=== PATIENT | male | born 1990 | race Caucasian/White ===

== ENCOUNTER 2019-10-27 10:12 | Emergency (ER) | payer OTHER ==
--- NOTE | 2019-10-27 12:52 | ER ---
Nurse's Notes [facility] Name: Tito Pratt Age: 29 yrs Sex: Male : 1990 Arrival Date: 10/27/2019 Time: 10:15 Bed 28 Private MD: Luis Hearn Diagnosis: Acute actinic otitis externa Presentation: 10/26 11:09 Chief complaint: Patient states: R ear pain since Sunday. Denies drainage. Reports ca1 dizziness with the ear pain. Coronavirus screen: Client denies travel out of the [place] in the last 14 days. At this time, the client does not indicate any symptoms associated with coronavirus-19. Ebola Screen: Patient negative for fever greater than or equal to 101.5 degrees Fahrenheit, and additional compatible Ebola Virus Disease symptoms Patient denies exposure to infectious person. Patient denies travel to an Ebola-affected area in the 21 days before illness onset. No symptoms or risks identified at this time. Initial Sepsis Screen: Does the patient meet any 2 criteria? No. Patient's initial sepsis screen is negative. Does the patient have a suspected source of infection? No. Patient's initial sepsis screen is negative. Risk Assessment: Do you want to hurt yourself or someone else? Patient reports no desire to harm self or others. Onset of symptoms was October 27, 2019. 11:09 Method Of Arrival: Ambulatory ca1 11:09 Acuity: KEYA 5 ca1 Triage Assessment: 11:11 General: Appears in no apparent distress. comfortable, Behavior is calm, cooperative, ca1 appropriate for age. Pain: Complains of pain in right ear. 12:00 EENT: Tympanic membrane reddened on right ear. bp Historical: - Allergies: 11:11 No Known Allergies; ca1 - Home Meds: 11:11 losartan-hydrochlorothiazide 50-12.5 mg Oral tab 1 tab once daily [Active]; ca1 - PMHx: 11:11 Hypertension; ca1 - PSHx: 11:11 ankle sx; ca1 - Immunization history:: Adult Immunizations up to date. - Social history:: Smoking status: Patient denies any tobacco usage or history of. Screenin:00 Abuse screen: Denies threats or abuse. Denies injuries from another. Nutritional bp screening: No deficits noted. Tuberculosis screening: No symptoms or risk factors identified. Fall Risk None identified. Assessment: 11:15 General: SEE TRIAGE NOTE. bp 13:00 Reassessment: PT D/C HOME AMBULATORY, DX WITH OTITIS EXTERNA. bp Vital Signs: 11:09 BP 135 / 96; Pulse 60; Resp 15 S; Temp 98.9(O); Pulse Ox 98% on R/A; Weight 106.59 kg ca1 (R); Height 6 ft. 1 in. (185.42 cm) (R); 13:00 BP 127 / 85; Pulse 63; Resp 17; Temp 98.5; Pulse Ox 98% ; bp 11:09 Body Mass Index 31.00 (106.59 kg, 185.42 cm) ca1 ED Course: 10:15 Patient arrived in ED. as 10:15 Luis Hearn MD is Private Physician. as 11:10 Triage completed. ca1 11:11 Arm band placed on right wrist. ca1 12:00 Patient has correct armband on for positive identification. Bed in low position. Call bp light in reach. Side rails up X2. 12:11 Clayton Michael PA is PHCP. [facility] 12:11 Noah Darby MD is Attending Physician. [facility] 12:15 Chery Dorsey, RN is Primary Nurse. iw 12:50 Luis Hearn MD is Referral Physician. [facility] 13:00 No provider procedures requiring assistance completed. Patient did not have IV access bp during this emergency room visit. Administered Medications: No medications were administered Outcome: 12:51 Discharge ordered by MD. jmm 13:01 Discharged to home ambulatory. bp 13:01 Condition: stable 13:01 Discharge instructions given to patient, Instructed on discharge instructions, follow up and referral plans. medication usage, Demonstrated understanding of instructions, follow-up care, medications, Prescriptions given X 1. 13:02 Patient left the ED. bp Signatures: Clayton Michael PA PA jmm Martinez, Amelia as Chery Dorsey, RN TRACE iw Dash Dan RN RN bp Heather Rossi RN RN ca1
--- NOTE | 2019-10-27 12:52 | EDPHYS ---
Physician Documentation [facility] Name: Tito Pratt Age: 29 yrs Sex: Male : 1990 Arrival Date: 10/27/2019 Time: 10:15 Bed 28 Private MD: Luis Hearn ED Physician Noah Darby HPI: 10/26 12:43 This 29 yrs old Male presents to ER via Ambulatory with complaints of Ear jmm Pain, Dizziness. 12:43 The patient presents with pain. Onset: The symptoms/episode began/occurred gradually, 3 jmm day(s) ago. Modifying factors: The symptoms are alleviated by nothing, the symptoms are aggravated by nothing. Associated signs and symptoms: Pertinent negatives: fever. This is a 29 year old male with a history of htn that presents to the ED with complaints of right ear pain beginning 3 days ago. Denies cough, fever, congestion. . Historical: - Allergies: 11:11 No Known Allergies; ca1 - Home Meds: 11:11 losartan-hydrochlorothiazide 50-12.5 mg Oral tab 1 tab once daily [Active]; ca1 - PMHx: 11:11 Hypertension; ca1 - PSHx: 11:11 ankle sx; ca1 - Immunization history:: Adult Immunizations up to date. - Social history:: Smoking status: Patient denies any tobacco usage or history of. ROS: 12:43 Constitutional: Negative for fever, chills, and weight loss. jmm 12:43 Cardiovascular: Negative for chest pain, palpitations, and edema, Respiratory: Negative for shortness of breath, cough, wheezing, and pleuritic chest pain, Abdomen/GI: Negative for abdominal pain, nausea, vomiting, diarrhea, and constipation. 12:43 ENT: Positive for ear pain. 12:43 All other systems are negative. Exam: 12:43 Constitutional: This is a well developed, well nourished patient who is awake, alert, jmm and in no acute distress. Head/Face: atraumatic. Eyes: EOMI, no conjunctival erythema appreciated 12:43 Neck: Trachea midline, Supple Chest/axilla: Normal chest wall appearance and motion. Cardiovascular: Regular rate and rhythm. No edema appreciated Respiratory: Normal respirations, no respiratory distress appreciated Abdomen/GI: Non distended, soft Back: Normal ROM Skin: General appearance color normal MS/ Extremity: Moves all extremities, no obvious deformities appreciated, no edema noted to the lower extremities Neuro: Awake and alert, normal gait Psych: Behavior is normal, Mood is normal, Patient is cooperative and pleasant 12:43 ENT: Ear canal(s): swelling, that is moderate, of the right canal, Posterior pharynx: is normal. Vital Signs: 11:09 BP 135 / 96; Pulse 60; Resp 15 S; Temp 98.9(O); Pulse Ox 98% on R/A; Weight 106.59 kg ca1 (R); Height 6 ft. 1 in. (185.42 cm) (R); 13:00 BP 127 / 85; Pulse 63; Resp 17; Temp 98.5; Pulse Ox 98% ; bp 11:09 Body Mass Index 31.00 (106.59 kg, 185.42 cm) ca1 MDM: 12:33 Patient medically screened. [facility] 12:50 Data reviewed: vital signs, nurses notes. Counseling: I had a detailed discussion with octavia the patient and/or guardian regarding: the historical points, exam findings, and any diagnostic results supporting the discharge/admit diagnosis, the need for outpatient follow up, to return to the emergency department if symptoms worsen or persist or if there are any questions or concerns that arise at home. ED course: PE findings consistent with OE. Patient is advised to follow up with pcp and otherwise given strict return precautions. Patient understood and agrees with the plan of care. . Administered Medications: No medications were administered Disposition: 17:29 Co-signature as Attending Physician, Noah Darby MD. rn Disposition: 10/27/19 12:51 Discharged to Home. Impression: Acute actinic otitis externa. - Condition is Stable. - Discharge Instructions: Otitis Externa. - Prescriptions for Cortisporin- TC 3.3-3-10-0.5 mg/mL Otic Suspension - instill 4 drop by OTIC route every 6 hours; 1 bottle. - Medication Reconciliation Form, Thank You Letter, Antibiotic Education, Prescription Opioid Use, Work release form form. - Follow up: Luis Hearn MD; When: 2 - 3 days; Reason: Recheck today's complaints, Continuance of care, Re-evaluation by your physician. Signatures: Clayton Michael PA PA Noah Ramos MD MD rn Peltier, Brian, RN RN bp [place], Heather RN RN [facility] Corrections: (The following items were deleted from the chart) 13:02 12:51 10/27/2019 12:51 Discharged to Home. Impression: Acute actinic otitis externa. bp Condition is Stable. Forms are Medication Reconciliation Form, Thank You Letter, Antibiotic Education, Prescription Opioid Use. Follow up: Luis Hearn; When: 2 - 3 days; Reason: Recheck today's complaints, Continuance of care, Re-evaluation by your physician. octavia
[2019-10-27 13:15] VITALS: O2SAT 98
[2019-10-27 13:17] VITALS: BP 127/85; TEMP 98.5
== END 2019-10-27 13:02 | disposition home or self-care (01) ==
LOC: ER 10:12
DX: H60.511 Acute actinic otitis externa, right ear (principal); I10 Essential (primary) hypertension
CPT/HCPCS: 99282

== ENCOUNTER 2019-10-27 17:19 | Emergency (ER) | payer OTHER ==
--- NOTE | 2019-10-27 20:23 | ER ---
Nurse's Notes [facility] Name: Tito Pratt Age: 29 yrs Sex: Male : 1990 Arrival Date: 10/27/2019 Time: 17:22 Bed 13 Private MD: Diagnosis: Otitis externa Presentation: 10/26 17:50 Chief complaint: Patient states: here this morning for R ear pain. Was prescribed ear ca1 drops. Now, the pain is just unbearable and goes down to the R jaw. Coronavirus screen: Client denies travel out of the [place] in the last 14 days. At this time, the client does not indicate any symptoms associated with coronavirus-19. Ebola Screen: Patient negative for fever greater than or equal to 101.5 degrees Fahrenheit, and additional compatible Ebola Virus Disease symptoms Patient denies exposure to infectious person. Patient denies travel to an Ebola-affected area in the 21 days before illness onset. No symptoms or risks identified at this time. Initial Sepsis Screen: Does the patient meet any 2 criteria? No. Patient's initial sepsis screen is negative. Does the patient have a suspected source of infection? No. Patient's initial sepsis screen is negative. Risk Assessment: Do you want to hurt yourself or someone else? Patient reports no desire to harm self or others. Onset of symptoms was October 27, 2019. 17:50 Method Of Arrival: Ambulatory ca1 17:50 Acuity: KEYA 5 ca1 17:50 Onset of symptoms was October 27, 2019. ca1 Historical: - Allergies: 17:52 No Known Allergies; ca1 - Home Meds: 17:52 losartan-hydrochlorothiazide 50-12.5 mg Oral tab 1 tab once daily [Active]; ca1 - PMHx: 17:52 Hypertension; ca1 - PSHx: 17:52 ankle sx; ca1 - Immunization history:: Adult Immunizations up to date. - Social history:: Smoking status: Patient denies any tobacco usage or history of. Screenin:21 Abuse screen: Denies threats or abuse. Nutritional screening: No deficits noted. tw2 Tuberculosis screening: No symptoms or risk factors identified. Fall Risk None identified. Assessment: 19:55 General: Appears in no apparent distress. comfortable, Behavior is calm, cooperative. mg2 Neuro: Level of Consciousness is awake, alert, obeys commands, Oriented to person, place, time, situation. Cardiovascular: Capillary refill < 3 seconds Patient's skin is warm and dry. Respiratory: Airway is patent Respiratory effort is even, unlabored, Respiratory pattern is regular, symmetrical. GI: No signs and/or symptoms were reported involving the gastrointestinal system. : No signs and/or symptoms were reported regarding the genitourinary system. Derm: Skin is intact, is healthy with good turgor, Skin is pink, warm \T\ dry. normal. Musculoskeletal: Circulation, motion, and sensation intact. Capillary refill < 3 seconds. 19:55 Pain: Complains of pain in right ear. EENT: Reports. mg2 20:42 Reassessment: for dc after shot time. mg2 Vital Signs: 17:50 BP 129 / 81; Pulse 74; Resp 15 S; Temp 99.4(O); Pulse Ox 97% on R/A; Weight 106.59 kg ca1 (R); Height 6 ft. 1 in. (185.42 cm) (R); 20:56 BP 120 / 80; Pulse 80; Resp 18; Temp 99; Pulse Ox 100% on R/A; mg2 17:50 Body Mass Index 31.00 (106.59 kg, 185.42 cm) ca1 ED Course: 17:22 Patient arrived in ED. ag5 17:51 Triage completed. ca1 17:52 Arm band placed on right wrist. ca1 19:08 Chinmay Almonte, TRACE is Primary Nurse. mg2 19:36 Uriah Noe MD is Attending Physician. anel 19:55 Patient has correct armband on for positive identification. Door closed. mg2 19:55 No provider procedures requiring assistance completed. mg2 20:20 Jazlyn Jacobson MD is Referral Physician. anel 20:56 IV discontinued, intact, bleeding controlled, No redness/swelling at site. Pressure mg2 dressing applied. Administered Medications: 20:30 Drug: [place] 10 mg-325 mg 1 tabs Route: PO; mg2 20:57 Follow up: Response: No adverse reaction; RASS: Alert and Calm (0) mg2 20:31 Drug: LevOfloxacin 750 mg Route: PO; mg2 20:57 Follow up: Response: No adverse reaction mg2 20:41 Not Given (not available ): CIPRODEX 4 drops Otic in right ear once mg2 20:41 Drug: Rocephin (cefTRIAXone) 1 grams Route: IM; Site: left gluteus; mg2 20:57 Follow up: Response: No adverse reaction mg2 Outcome: 20:22 Discharge ordered by . anel 20:57 Discharged to home ambulatory. mg2 20:57 Condition: stable 20:57 Discharge instructions given to patient, Instructed on discharge instructions, follow up and referral plans. medication usage, Demonstrated understanding of instructions, follow-up care, medications, Prescriptions given X 3. 20:57 Patient left the ED. mg2 Signatures: Uriah Noe MD MD cha Wise, Tara, RN RN tw2 Chinmay Almonte RN RN mg2 Heather Rossi RN RN ca1 Seferino Villarreal ag5
--- NOTE | 2019-10-27 20:23 | EDPHYS ---
Physician Documentation [facility] Name: Tito Pratt Age: 29 yrs Sex: Male : 1990 Arrival Date: 10/27/2019 Time: 17:22 Bed 13 Private MD: LIN Physician Uriah Noe HPI: 10/26 20:13 This 29 yrs old Male presents to ER via Ambulatory with complaints of Ear anel Pain, Dizziness. 20:13 The patient presents with pain, that is acute, swelling, tenderness. The complaints anel affect the right ear. Onset: The symptoms/episode began/occurred 3 day(s) ago. Modifying factors: The symptoms are alleviated by nothing, the symptoms are aggravated by pulling on ears, touching. Associated signs and symptoms: Pertinent positives: vertigo. Severity of symptoms: At their worst the symptoms were moderate in the emergency department the symptoms are unchanged. The patient has not experienced similar symptoms in the past. Historical: - Allergies: 17:52 No Known Allergies; ca1 - Home Meds: 17:52 losartan-hydrochlorothiazide 50-12.5 mg Oral tab 1 tab once daily [Active]; ca1 - PMHx: 17:52 Hypertension; ca1 - PSHx: 17:52 ankle sx; ca1 - Immunization history:: Adult Immunizations up to date. - Social history:: Smoking status: Patient denies any tobacco usage or history of. ROS: 20:17 Constitutional: Negative for fever, chills, and weight loss, Eyes: Negative for injury, anel pain, redness, and discharge, Neck: Negative for injury, pain, and swelling, Cardiovascular: Negative for chest pain, palpitations, and edema, Respiratory: Negative for shortness of breath, cough, wheezing, and pleuritic chest pain, Abdomen/GI: Negative for abdominal pain, nausea, vomiting, diarrhea, and constipation, Back: Negative for injury and pain, : Negative for injury, bleeding, discharge, and swelling, MS/Extremity: Negative for injury and deformity, Skin: Negative for injury, rash, and discoloration, Neuro: Negative for headache, weakness, numbness, tingling, and seizure, Psych: Negative for depression, anxiety, suicide ideation, homicidal ideation, and hallucinations, Allergy/Immunology: Negative for hives, rash, and allergies, Endocrine: Negative for neck swelling, polydipsia, polyuria, polyphagia, and marked weight changes, Hematologic/Lymphatic: Negative for swollen nodes, abnormal bleeding, and unusual bruising. 20:17 ENT: Positive for ear pain. Exam: 20:17 Constitutional: This is a well developed, well nourished patient who is awake, alert, anel and in no acute distress. Head/Face: Normocephalic, atraumatic. Eyes: Pupils equal round and reactive to light, extra-ocular motions intact. Lids and lashes normal. Conjunctiva and sclera are non-icteric and not injected. Cornea within normal limits. Periorbital areas with no swelling, redness, or edema. Neck: Trachea midline, no thyromegaly or masses palpated, and no cervical lymphadenopathy. Supple, full range of motion without nuchal rigidity, or vertebral point tenderness. No Meningismus. Chest/axilla: Normal chest wall appearance and motion. Nontender with no deformity. No lesions are appreciated. Cardiovascular: Regular rate and rhythm with a normal S1 and S2. No gallops, murmurs, or rubs. Normal PMI, no JVD. No pulse deficits. Respiratory: Lungs have equal breath sounds bilaterally, clear to auscultation and percussion. No rales, rhonchi or wheezes noted. No increased work of breathing, no retractions or nasal flaring. Abdomen/GI: Soft, non-tender, with normal bowel sounds. No distension or tympany. No guarding or rebound. No evidence of tenderness throughout. Back: No spinal tenderness. No costovertebral tenderness. Full range of motion. Skin: Warm, dry with normal turgor. Normal color with no rashes, no lesions, and no evidence of cellulitis. MS/ Extremity: Pulses equal, no cyanosis. Neurovascular intact. Full, normal range of motion. Neuro: Awake and alert, GCS 15, oriented to person, place, time, and situation. Cranial nerves II-XII grossly intact. Motor strength 5/5 in all extremities. Sensory grossly intact. Cerebellar exam normal. Normal gait. Psych: Awake, alert, with orientation to person, place and time. Behavior, mood, and affect are within normal limits. 20:17 ENT: Ear canal(s): erythema, swelling, that is moderate, of the right canal, TM's: are normal, no acute changes, Examination of the other ear shows no obvious abnormality, normal, Nose: is normal, no acute changes, Mouth: is normal, no acute changes, Posterior pharynx: is normal, no acute changes. Vital Signs: 17:50 BP 129 / 81; Pulse 74; Resp 15 S; Temp 99.4(O); Pulse Ox 97% on R/A; Weight 106.59 kg ca1 (R); Height 6 ft. 1 in. (185.42 cm) (R); 20:56 BP 120 / 80; Pulse 80; Resp 18; Temp 99; Pulse Ox 100% on R/A; mg2 17:50 Body Mass Index 31.00 (106.59 kg, 185.42 cm) ca1 MDM: 19:36 Patient medically screened. anel 20:18 Differential diagnosis: otitis media, otitis externa, acute otalgia, cerumen impaction. anel Data reviewed: vital signs, nurses notes. Data interpreted: color television console monitor: not applicable for this patient encounter. rate is 74 beats/min, rhythm is regular, Pulse oximetry: on room air is 97 %. Test interpretation: by ED physician or midlevel provider:. Counseling: I had a detailed discussion with the patient and/or guardian regarding: the historical points, exam findings, and any diagnostic results supporting the discharge/admit diagnosis, the need for outpatient follow up, for definitive care, an ENT specialist. Administered Medications: 20:30 Drug: [place] 10 mg-325 mg 1 tabs Route: PO; mg2 20:57 Follow up: Response: No adverse reaction; RASS: Alert and Calm (0) mg2 20:31 Drug: LevOfloxacin 750 mg Route: PO; mg2 20:57 Follow up: Response: No adverse reaction mg2 20:41 Not Given (not available ): CIPRODEX 4 drops Otic in right ear once mg2 20:41 Drug: Rocephin (cefTRIAXone) 1 grams Route: IM; Site: left gluteus; mg2 20:57 Follow up: Response: No adverse reaction mg2 Disposition: 10/27/19 20:22 Discharged to Home. Impression: Otitis externa. - Condition is Stable. - Discharge Instructions: Otitis Externa, Otitis Externa, [id number]. - Prescriptions for Levaquin 750 mg Oral Tablet - take 1 tablet by ORAL route once daily for 10 days; 10 tablet. Tylenol- Codeine #3 300-30 mg Oral Tablet - take 2 tablet by ORAL route every 6 hours As needed; 30 tablet. Ciprodex 0.3- 0.1 % Otic Drops, Suspension - instill 4 drop by OTIC route every 12 hours for 7 days , for ears ONLY; 1 Container. - Medication Reconciliation Form, Thank You Letter, Antibiotic Education, Prescription Opioid Use form. - Follow up: Private Physician; When: 2 - 3 days; Reason: Recheck today's complaints, Continuance of care, Re-evaluation by your physician. Follow up: Jazlyn Jacobson MD; When: 2 - 3 days; Reason: Recheck today's complaints, Re-evaluation by your physician. Signatures: Uriah Noe MD MD cha Gardose, Michele, RN RN [facility] Heather Rossi RN RN [facility] Corrections: (The following items were deleted from the chart) 20:57 20:22 10/27/2019 20:22 Discharged to Home. Impression: Otitis externa. Condition is mg2 Stable. Forms are Medication Reconciliation Form, Thank You Letter, Antibiotic Education, Prescription Opioid Use. Follow up: Private Physician; When: 2 - 3 days; Reason: Recheck today's complaints, Continuance of care, Re-evaluation by your physician. Follow up: Jazlyn Jacobson; When: 2 - 3 days; Reason: Recheck today's complaints, Re-evaluation by your physician. anel
[2019-10-27] MEDS ORDERED: levoFLOXacin 750 MG TAB ONE (20:29)
[2019-10-27] MEDS ORDERED: HYDROCODONE/APAP 10/325 TAB ONE (20:30)
[2019-10-27] MEDS ORDERED: WATER FOR INJ,STERILE 10 ML ONE (20:44)
[2019-10-27] MEDS ORDERED: CEFTRIAXONE 1000 MG/VIAL ONE (20:44)
[2019-10-27] MEDS ORDERED: NEOMY/POLY/HC 1% OTIC DROPS ONE (20:46)
[2019-10-27 21:14] VITALS: BP 120/80; TEMP 99; O2SAT 100
== END 2019-10-27 20:57 | disposition home or self-care (01) ==
LOC: ER 17:19
DX: H60.91 Unspecified otitis externa, right ear (principal); I10 Essential (primary) hypertension

== ENCOUNTER 2020-02-18 23:54 | Emergency (ER) | payer OTHER ==
--- NOTE | 2020-02-19 00:27 | ER ---
Nurse's Notes [facility] Name: Tito Pratt Age: 29 yrs Sex: Male : 1990 Arrival Date: 02/18/2020 Time: 23:56 Bed Treatment Private MD: Diagnosis: Acute suppurative otitis media with spontaneous rupture of ear drum Presentation: 02/18 00:09 Chief complaint: Patient states: ear pain x 2 days, has taken tylenol and advil at home dm5 but pain woke pt up in the middle of the night. Coronavirus screen: Client denies travel out of the [place] in the last 14 days. At this time, the client does not indicate any symptoms associated with coronavirus-19. Ebola Screen: Patient negative for fever greater than or equal to 101.5 degrees Fahrenheit, and additional compatible Ebola Virus Disease symptoms Patient denies exposure to infectious person. Patient denies travel to an Ebola-affected area in the 21 days before illness onset. No symptoms or risks identified at this time. Initial Sepsis Screen: Does the patient meet any 2 criteria? No. Patient's initial sepsis screen is negative. Does the patient have a suspected source of infection? Yes: Other: ear. Risk Assessment: Do you want to hurt yourself or someone else? Patient reports no desire to harm self or others. Onset of symptoms was February 16, 2020. 00:09 Method Of Arrival: Ambulatory dm5 00:09 Acuity: KEYA 4 dm5 Historical: - Allergies: 00:15 No Known Allergies; dm5 - Home Meds: 00:15 losartan-hydrochlorothiazide 50-12.5 mg Oral tab 1 tab once daily [Active]; dm5 - PMHx: 00:15 Hypertension; dm5 - Immunization history:: Adult Immunizations up to date. - Social history:: Smoking status: Patient denies any tobacco usage or history of. Vital Signs: 00:09 BP 152 / 99; Pulse 76; Resp 18; Temp 97.3(TE); Pulse Ox 98% on R/A; Weight 108.86 kg; dm5 Height 6 ft. 1 in. (185.42 cm); Pain 10/10; 00:09 Body Mass Index 31.66 (108.86 kg, 185.42 cm) dm5 ED Course: 02/17 23:56 Patient arrived in ED. cl3 23:59 [facility] 23:59 Noah Darby MD is Attending Physician. [facility] 02/18 00:09 Samira Michelle, RN is Primary Nurse. dm5 00:14 Triage completed. dm5 00:26 Jazlyn Jacobson MD is Referral Physician. [facility] Administered Medications: 00:42 Drug: Augmentin 875 mg Route: PO; dm5 00:43 Drug: Rocephin (cefTRIAXone) 1 grams Route: IM; Site: left gluteus; dm5 01:00 Drug: [place] 10 mg-325 mg 1 tabs Route: PO; dm5 Outcome: 00:26 Discharge ordered by MD. abigail 01:19 Patient left the ED. dm5 Signatures: Samira Michelle, RN RN dm5 Clayton Michael PA PA Lauryn Rubin cl3 Corrections: (The following items were deleted from the chart) 00:47 02/17 23:42 Augmentin 875 mg PO dm5 dm5
--- NOTE | 2020-02-19 00:28 | EDPHYS ---
Physician Documentation [facility] Name: Tito Pratt Age: 29 yrs Sex: Male : 1990 Arrival Date: 02/18/2020 Time: 23:56 Bed Treatment Private MD: ED Physician Noah Darby HPI: 02/18 00:22 This 29 yrs old Male presents to ER via Ambulatory with complaints of Ear jmm Pain. 00:22 The patient presents with pain. Onset: The symptoms/episode began/occurred gradually, 2 jmm day(s) ago. Modifying factors: The symptoms are alleviated by nothing, the symptoms are aggravated by nothing. Associated signs and symptoms: Pertinent negatives: fever, sore throat. The patient has experienced a previous episode, approximately 3 months ago. Historical: - Allergies: 00:15 No Known Allergies; dm5 - Home Meds: 00:15 losartan-hydrochlorothiazide 50-12.5 mg Oral tab 1 tab once daily [Active]; dm5 - PMHx: 00:15 Hypertension; dm5 - Immunization history:: Adult Immunizations up to date. - Social history:: Smoking status: Patient denies any tobacco usage or history of. ROS: 00:22 Constitutional: Negative for fever, chills, and weight loss. jmm 00:22 Cardiovascular: Negative for chest pain, palpitations, and edema, Respiratory: Negative for shortness of breath, cough, wheezing, and pleuritic chest pain, Neuro: Negative for headache, weakness, numbness, tingling, and seizure. 00:22 ENT: Positive for ear pain. 00:22 All other systems are negative. Exam: 00:22 Constitutional: This is a well developed, well nourished patient who is awake, alert, jmm and in no acute distress. Head/Face: atraumatic. Eyes: EOMI, no conjunctival erythema appreciated 00:22 Neck: Trachea midline, Supple Chest/axilla: Normal chest wall appearance and motion. Cardiovascular: Regular rate and rhythm. No edema appreciated Respiratory: Normal respirations, no respiratory distress appreciated Abdomen/GI: Non distended, soft Back: Normal ROM Skin: General appearance color normal MS/ Extremity: Moves all extremities, no obvious deformities appreciated, no edema noted to the lower extremities Neuro: Awake and alert, normal gait Psych: Behavior is normal, Mood is normal, Patient is cooperative and pleasant 00:22 ENT: TM's: rupture, on the left, with purulent discharge, Posterior pharynx: is normal. Vital Signs: 00:09 BP 152 / 99; Pulse 76; Resp 18; Temp 97.3(TE); Pulse Ox 98% on R/A; Weight 108.86 kg; dm5 Height 6 ft. 1 in. (185.42 cm); Pain 10/10; 00:09 Body Mass Index 31.66 (108.86 kg, 185.42 cm) dm5 MDM: 00:06 Patient medically screened. [facility] 00:24 Data reviewed: vital signs, nurses notes. Counseling: I had a detailed discussion with [facility] the patient and/or guardian regarding: the historical points, exam findings, and any diagnostic results supporting the discharge/admit diagnosis, the need for outpatient follow up, to return to the emergency department if symptoms worsen or persist or if there are any questions or concerns that arise at home. Administered Medications: 00:42 Drug: Augmentin 875 mg Route: PO; dm5 00:43 Drug: Rocephin (cefTRIAXone) 1 grams Route: IM; Site: left gluteus; dm5 01:00 Drug: [place] 10 mg-325 mg 1 tabs Route: PO; dm5 Disposition: 01:49 Co-signature as Attending Physician, Noah Darby MD. rn Disposition: 02/19/20 00:26 Discharged to Home. Impression: Acute suppurative otitis media with spontaneous rupture of ear drum. - Condition is Stable. - Discharge Instructions: Otitis Media, Adult, Eardrum Perforation, [id number]. - Prescriptions for Augmentin 875- 125 mg Oral Tablet - take 1 tablet by ORAL route every 12 hours for 10 days; 20 tablet. Ultracet 37.5- 325 mg Oral Tablet - take 1 tablet by ORAL route every 6 hours - for up to 5 days; do not exceed 8 tablets per day.; 20 tablet. - Work release form, Medication Reconciliation Form, Thank You Letter, Antibiotic Education, Prescription Opioid Use form. - Follow up: Jazlyn Jacobson MD; When: 2 - 3 days; Reason: Recheck today's complaints, Continuance of care, Re-evaluation by your physician. Signatures: Samira Michelle, RN RN dm5 Clayton Michael PA PA Noah Davidson MD MD rn diabetes educator: (The following items were deleted from the chart) 01:19 00:26 02/19/2020 00:26 Discharged to Home. Impression: Acute suppurative otitis media dm5 with spontaneous rupture of ear drum. Condition is Stable. Forms are Medication Reconciliation Form, Thank You Letter, Antibiotic Education, Prescription Opioid Use. Follow up: Jazlyn Jacobson; When: 2 - 3 days; Reason: Recheck today's complaints, Continuance of care, Re-evaluation by your physician. octavia
[2020-02-19] MEDS ORDERED: HYDROCODONE/APAP 10/325 TAB ONE (00:50)
[2020-02-19] MEDS ORDERED: AMOX/K CLAV 875 MG TAB ONE (00:51)
[2020-02-19] MEDS ORDERED: CEFTRIAXONE 1000 MG/VIAL ONE (00:51)
[2020-02-19] MEDS ORDERED: WATER FOR INJ,STERILE 10 ML ONE (00:51)
[2020-02-24 12:00] VITALS: BP 152/99; TEMP 97.3; O2SAT 98
== END 2020-02-19 01:19 | disposition home or self-care (01) ==
LOC: ER 23:54
DX: H66.012 Acute suppurative otitis media with spontaneous rupture of ear drum, left ear (principal); I10 Essential (primary) hypertension
CPT/HCPCS: 96372; 99282

== ENCOUNTER 2020-02-21 12:15 | Emergency (ER) | payer OTHER ==
[2020-02-21] MEDS ORDERED: HYDROCODONE/APAP 10/325 TAB ONE (14:06)
[2020-02-21 14:43] LABS: Basophils % 0.6 % (0-1.3); Hematocrit 37.5 % (39.6-49.0); Lymphocytes % 23.3 % (15.3-44.8); MPV 8.3 fL (7.6-11.3); RBC Red Blood Cell Count 4.29 M/uL (4.33-5.43)
[2020-02-21 14:45] LABS: BUN Blood Urea Nitrogen 11 mg/dL (7-18); Bicarbonate 30 mmol/L (21-32); Glucose Level 104 mg/dL (74-106); Potassium 3.6 mmol/L (3.5-5.1); Sodium Level 140 mmol/L (136-145)
--- NOTE | 2020-02-21 15:15 | RAD REPORT ---
EXAM DESCRIPTION: CT - Int Auditory Canals W/Contr - 02/21/2020 2:44 pm TECHNIQUE: Computed axial tomography of the internal auditory canal performed. . Coronal and sagitta l reconstruction was performed. 50 cc Isovue-[address] All [address] scans are performed using dose optimization technique as appropriate and may include automated exposure control or mA/KV adjustment according to patient size. CLINICAL HISTORY: Left ear pain and swelling COMPARISON: None FINDINGS: Fluid is present throughout the left middle ear. Mildly enhancing soft tissue is present is present throughout the left external auditory canal. Soft tissue also surround the external auditory canal. Subtle bony erosion is suspected. . Small to moderate amount of fluid is present within the left mastoids. No gross abnormality of the ossicles. 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
--- NOTE | 2020-02-21 15:21 | ER ---
Nurse's Notes [facility] Name: Tito Pratt Age: 29 yrs Sex: Male : 1990 Arrival Date: 02/21/2020 Time: 12:16 Bed 15 Private MD: Diagnosis: Unspecified otitis externa, left ear;Acute suppurative otitis media with spontaneous rupture of ear drum, left ear Presentation: 02/20 12:44 Chief complaint: Patient states: Discharged Sunday night with ear infection in the jl7 left ear, had a Rocephin shot, prescription for amoxicillin and tramadol. Pain and swelling have gotten worse, drainage noted in triage, pt reports unable to close jaw from pain a swelling. Coronavirus screen: Client denies travel out of the [place] in the last 14 days. At this time, the client does not indicate any symptoms associated with coronavirus-19. Ebola Screen: No symptoms or risks identified at this time. Initial Sepsis Screen: Does the patient meet any 2 criteria? No. Patient's initial sepsis screen is negative. Does the patient have a suspected source of infection? No. Patient's initial sepsis screen is negative. Risk Assessment: Do you want to hurt yourself or someone else? Patient reports no desire to harm self or others. Onset of symptoms was February 16, 2020. Care prior to arrival: None. Transition of care: patient was not received from another setting of care. 12:44 Method Of Arrival: Ambulatory 7 12:44 Acuity: KEYA 3 jl7 Triage Assessment: 12:48 General: Appears in no apparent distress. uncomfortable, Behavior is calm, cooperative, jl7 appropriate for age. Pain: Complains of pain in left ear Pain currently is 10 out of 10 on a pain scale. EENT: Ear canal w/ drainage noted from left ear. Historical: - Allergies: 12:48 No Known Allergies; jl7 - Home Meds: 12:48 losartan 50 mg oral tab 1 tab once daily [Active]; jl7 - PMHx: 12:48 Hypertension; jl7 - PSHx: 12:48 ankle; jl7 - Immunization history:: Adult Immunizations unknown. - Social history:: Smoking status: Patient reports the use of cigarette tobacco products, denies chronic smoking, but will smoke occasionally. Screenin:03 Abuse screen: Denies threats or abuse. Denies injuries from another. Nutritional zb screening: No deficits noted. Tuberculosis screening: No symptoms or risk factors identified. Fall Risk None identified. Assessment: 13:58 General: Appears in no apparent distress. comfortable, Behavior is calm, cooperative, zb appropriate for age. Pain: Complains of pain in left ear Pain radiates to left jaw Pain currently is 2 out of 10 on a pain scale. at worst was 10 out of 10 on a pain scale. Quality of pain is described as aching, pressure, sharp, throbbing, Pain began 2-3 days ago. Is intermittent, Aggravated by eating. Neuro: Level of Consciousness is awake, alert, obeys commands, Oriented to person, place, time, situation. Cardiovascular: Heart tones S1 S2 present Capillary refill < 3 seconds in bilateral Patient's skin is warm and dry. Pulses are all present. Respiratory: Airway is patent Respiratory effort is even, unlabored, Respiratory pattern is regular, symmetrical, Breath sounds are clear bilaterally. GI: Abdomen is round non-distended, Bowel sounds present X 4 quads. : No signs and/or symptoms were reported regarding the genitourinary system. EENT: Ear canal dried, crusty drainage noted, left ear is TTP, swelling/redness noted, feels hot to touch . Derm: Skin is intact, is healthy with good turgor. Musculoskeletal: Circulation, motion, and sensation intact. Capillary refill < 3 seconds, in bilateral fingers. Range of motion: intact in all extremities. 14:58 Reassessment: Patient appears in no apparent distress at this time. Patient and/or zb family updated on plan of care and expected duration. Pain level reassessed. Patient is alert, oriented x 3, equal unlabored respirations, skin warm/dry/pink. pain decrease to 5/10 at worst. pt states pill has kicked in. Vital Signs: 12:44 BP 133 / 87; Pulse 84; Resp 17; Temp 98.7; Pulse Ox 98% ; Weight 113.4 kg; Height 6 ft. jl7 1 in. (185.42 cm); Pain 10/10; 15:27 BP 140 / 89; Pulse 80; Resp 16; Pulse Ox 99% on R/A; zb 12:44 Body Mass Index 32.98 (113.40 kg, 185.42 cm) jl7 ED Course: 12:16 Patient arrived in ED. ag5 12:47 Triage completed. jl7 12:48 Arm band placed on right wrist. jl7 13:33 Erasmo Suarez NP is PHCP. pm1 13:33 Uriah Noe MD is Attending Physician. pm1 13:48 Abby Lee, RN is Primary Nurse. zb 14:03 Patient has correct armband on for positive identification. Bed in low position. Call zb light in reach. Side rails up X 1. Pulse ox on. NIBP on. Door closed. Noise minimized. 14:13 Inserted saline lock: 20 gauge in right antecubital area, using aseptic technique. jd3 Blood collected. 14:44 Int Auditory Canals W/Contr In Process Unspecified. EDMS 15:42 No provider procedures requiring assistance completed. IV discontinued, intact, zb bleeding controlled, No redness/swelling at site. Pressure dressing applied. Administered Medications: 13:50 Drug: [place] 10 mg-325 mg 1 tabs Route: PO; zb 15:42 Follow up: Response: Pain is decreased zb 15:36 Drug: Bactrim (160 mg-800 mg (DS) 1 tablet Route: PO; zb 15:42 Follow up: Response: No adverse reaction zb Outcome: 15:19 Discharge ordered by . pm1 15:43 Discharged to home ambulatory. zb 15:43 Condition: good 15:43 Discharge instructions given to patient, Instructed on discharge instructions, follow up and referral plans. medication usage, Demonstrated understanding of instructions, follow-up care, medications, Prescriptions given X 3. 15:46 Patient left the ED. zb Signatures: Dispatcher [employer] EDMS Erasmo Suarez NP [employer] pm1 Hollis Yost RN RN jl7 Jori De Leon RN RN jSeferino Hannah ag Abby Lee RN RN zghislaine
--- NOTE | 2020-02-21 15:21 | EDPHYS ---
Physician Documentation [facility] Name: Tito Pratt Age: 29 yrs Sex: Male : 1990 Arrival Date: 02/21/2020 Time: 12:16 Bed 15 Private MD: ED Physician Uriah Noe HPI: 02/20 13:59 This 29 yrs old Male presents to ER via Ambulatory with complaints of Ear pm1 Pain, Facial Swelling. 13:59 The patient presents with pain, that is acute, swelling. The complaints affect the left pm1 ear. Onset: The symptoms/episode began/occurred 4 day(s) ago. Modifying factors: The symptoms are alleviated by nothing, the symptoms are aggravated by nothing. Associated signs and symptoms: Pertinent positives: swelling, Pertinent negatives: fever, nausea, shortness of breath, sore throat, vomiting. Severity of symptoms: in the emergency department the symptoms are worse. The patient has been recently seen at the [facility] Emergency Department, for similar complaints was given a prescription for antibiotics, two days ago and diagnosed with AOM with rupture . Patient with onset of left ear pain 4 days ago. Was seen here two days ago and was given IM Rocephin, discharged with Augmentin, and diagnosed with AOM with ruptured TM. Patient reports swelling this AM to left ear and preauricular area. Patient is able to eat and drink, and open and close his mouth. Historical: - Allergies: 12:48 No Known Allergies; jl7 - Home Meds: 12:48 losartan 50 mg oral tab 1 tab once daily [Active]; jl7 - PMHx: 12:48 Hypertension; jl7 - PSHx: 12:48 ankle; jl7 - Immunization history:: Adult Immunizations unknown. - Social history:: Smoking status: Patient reports the use of cigarette tobacco products, denies chronic smoking, but will smoke occasionally. ROS: 13:59 Constitutional: Negative for fever, chills, and weight loss. pm1 13:59 Neck: Negative for injury, pain, and swelling, Cardiovascular: Negative for chest pain, palpitations, and edema, Respiratory: Negative for shortness of breath, cough, wheezing, and pleuritic chest pain, Abdomen/GI: Negative for abdominal pain, nausea, vomiting, diarrhea, and constipation, Back: Negative for injury and pain, MS/Extremity: Negative for injury and deformity, Skin: Negative for injury, rash, and discoloration, Neuro: Negative for headache, weakness, numbness, tingling, and seizure. 13:59 ENT: Positive for drainage from ear(s), ear pain, Negative for sore throat, dental pain, difficulty swallowing, difficulty handling secretions, hoarseness. Exam: 13:59 Constitutional: This is a well developed, well nourished patient who is awake, alert, pm1 and in no acute distress. Head/Face: Normocephalic, atraumatic. 13:59 Skin: Warm, dry with normal turgor. Normal color with no rashes, no lesions, and no evidence of cellulitis. MS/ Extremity: Pulses equal, no cyanosis. Neurovascular intact. Full, normal range of motion. 13:59 ENT: External ear(s): swelling, that is minimal, of the pinna of left ear, left ear lobe, left ear canal and left preauricular area, Ear canal(s): purulent discharge, that is minimal, in the left canal, swelling, of the left canal, TM's: not visable, because of discharge, swelling, left TM not visable, Posterior pharynx: is normal, airway is patent, no erythema, no exudate, no peritonsilar mass, no pooling of secretions, no swelling, Dental exam: normal, no cellulitis, no dental caries, no gum swelling, no trismus, no acute changes, negative for tenderness left post auricular and mastoid process. Right ear normal. 13:59 Cardiovascular: Exam negative for acute changes, Rate: normal, Rhythm: regular, Pulses: no pulse deficits are appreciated. 13:59 Respiratory: Exam negative for acute changes, respiratory distress, shortness of breath. 13:59 Neuro: Exam negative for acute changes, Orientation: is normal, Mentation: is normal, Motor: is normal, moves all fours. Vital Signs: 12:44 BP 133 / 87; Pulse 84; Resp 17; Temp 98.7; Pulse Ox 98% ; Weight 113.4 kg; Height 6 ft. jl7 1 in. (185.42 cm); Pain 10/10; 15:27 BP 140 / 89; Pulse 80; Resp 16; Pulse Ox 99% on R/A; zb 12:44 Body Mass Index 32.98 (113.40 kg, 185.42 cm) jl7 MDM: 13:33 Patient medically screened. pm1 13:59 ED course: Discussed patient presentation with Dr. Noe, recommended CT with IV pm1 contrast for further evaluation . 14:53 Data reviewed: vital signs. pm1 15:16 ED course: Discussed CT findings with attending and recommended ciprodex susp and pm1 bactrim for discharge. 15:18 Counseling: I had a detailed discussion with the patient and/or guardian regarding: the pm1 historical points, exam findings, and any diagnostic results supporting the discharge/admit diagnosis, lab results, radiology results, the need for outpatient follow up, an ENT specialist, to return to the emergency department if symptoms worsen or persist or if there are any questions or concerns that arise at home. 15:26 ED course: Patient showed me a picture of old Ciprodex solution that he planed to pm1 taking today. I told him that the solution would harm him and he needs to take Ciprodex suspension that I will prescribe him. 15:38 ED course: Patient reports itching with Ultracet and he has used them all. Will pm1 prescribe Tylenol #3. 15:41 ED course: ORTHOPAEDIC TECHNOLOGIST aware reviewed. Last medication listed is tylenol #3 10/28/2019. pm1 15:41 ED course: Ear wick placed in patient left ear canal prior to discharge. pm1 02/20 13:58 Order name: BMP; Complete Time: 14:47 pm1 02/20 13:58 Order name: CBC with Diff; Complete Time: 15:09 pm1 02/20 13:57 Order name: IV Saline Lock; Complete Time: 14:22 pm1 02/20 13:59 Order name: Int Auditory Canals W/Contr; Complete Time: 15:16 EDMS Administered Medications: 13:50 Drug: [place] 10 mg-325 mg 1 tabs Route: PO; zb 15:42 Follow up: Response: Pain is decreased zb 15:36 Drug: Bactrim (160 mg-800 mg (DS) 1 tablet Route: PO; zb 15:42 Follow up: Response: No adverse reaction zb Disposition: 02/21/20 15:19 Discharged to Home. Impression: Unspecified otitis externa, left ear, Acute suppurative otitis media with spontaneous rupture of ear drum, left ear. - Condition is Stable. - Discharge Instructions: Ear Drops, Adult, Otitis Media, Adult, Otitis Externa. - Prescriptions for Bactrim DS 800- 160 mg Oral Tablet - take 1 tablet by ORAL route every 12 hours for 10 days; 20 tablet. Ciprodex 0.3- 0.1 % Otic Drops, Suspension - instill 4 drop by OTIC route every 12 hours for 7 days , for ears ONLY; 1 Container. Tylenol- Codeine #3 300-30 mg Oral Tablet - take 2 tablets by ORAL route every 6 hours As needed; 20 tablet. - Medication Reconciliation Form, Thank You Letter, Antibiotic Education, Prescription Opioid Use, Work release form form. - Follow up: Emergency Department; When: As needed; Reason: Worsening of condition. Follow up: Private Physician; When: 2 - 3 days; Reason: Recheck today's complaints, Continuance of care, Re-evaluation by your physician. - Problem is new. - Symptoms have improved. Addendum: 02/22/2020 17:58 Co-signature as Attending Physician, Uriah Noe MD I agree with the assessment and c gonzalez plan of care. Signatures: Dispatcher [employer] EDUriah Yanez MD MD cha Marinas, Patrick, LMFT LMFT pm1 Hollis Yost RN RN jl7 Abby Lee RN RN zb Corrections: (The following items were deleted from the chart) 02/20 15:46 15:19 02/21/2020 15:19 Discharged to Home. Impression: Unspecified otitis externa, left zb ear; Acute suppurative otitis media with spontaneous rupture of ear drum, left ear. Condition is Stable. Forms are Medication Reconciliation Form, Thank You Letter, Antibiotic Education, Prescription Opioid Use. Follow up: Emergency Department; When: As needed; Reason: Worsening of condition. Follow up: Private Physician; When: 2 - 3 days; Reason: Recheck today's complaints, Continuance of care, Re-evaluation by your physician. Problem is new. Symptoms have improved. pm1
[2020-02-21] MEDS ORDERED: SMZ./TMP. 800/160 MG TABLET ONE (15:43)
[2020-02-25 16:43] VITALS: TEMP 98.7
[2020-02-25 16:46] VITALS: BP 140/89; O2SAT 99
== END 2020-02-21 15:46 | disposition home or self-care (01) ==
LOC: ER 12:15
DX: H60.92 Unspecified otitis externa, left ear (principal); H66.012 Acute suppurative otitis media with spontaneous rupture of ear drum, left ear; I10 Essential (primary) hypertension; Z72.0 Tobacco use
CPT/HCPCS: 85025; 80048; 36415; 70481; 99284; Q9967